=== PATIENT | male | born 1955 | race Caucasian/White ===

== ENCOUNTER 2016-07-29 12:37 | Day surgery (SDC) | payer OTHER ==
[~2016-07-29] VITALS: Ht 180.3 cm; Wt 106.2 kg
[~2016-07-29 12:37] MED LIST: BACTRIM DS 8001 TAB PO; CEPHALEXIN250 M1 PO; CEPHALEXIN500 M1 PO; CIPRO 500MG TA500 MG PO; DOXYCYCLINE 10100 MG PO; DOXYCYCLINE100 MG PO; FLOMAX 0.40.4 MG/CAP PO; NORCO 325 MG-51 TAB PO; PRINIVIL10 MG PO; VOLTAREN 75 DR75 MG PO
[2016-07-29 13:35] VITALS: BP 149/92; PULSE 100; TEMP 97.9
[2016-07-29] MEDS ORDERED: MIRALAX PA17 GM/Dose PO (13:47)
[2016-07-29] MEDS ORDERED: COLACE 100100 MG/CAP PO (13:50)
[2016-07-29 16:56] VITALS: TEMP 98.5
[2016-07-29 17:10] VITALS: BP 139/84; PULSE 73
[2016-07-29 17:25] VITALS: BP 117/72; PULSE 82
[2016-07-29 17:42] VITALS: BP 142/85; PULSE 84
[2016-07-29 17:55] VITALS: BP 135/81; PULSE 73
== END 2016-07-29 18:30 | disposition home or self-care (01) ==
LOC: SDCO 12:37 → SURG 17:10 → SDCO 18:30
DX: N13.2 Hydronephrosis with renal and ureteral calculous obstruction (principal); K21.9 Gastro-esophageal reflux disease without esophagitis; G62.9 Polyneuropathy, unspecified; Z79.899 Other long term (current) drug therapy
CPT/HCPCS: OP; C1769; C2617; J0690; J1100; J2405; J2704; J3010; J7120; Q9967

== ENCOUNTER → 2017-02-26 | Outpatient (CLI) | payer OTHER ==
[~2017-02-26] MED LIST changes: +COLACE 100100 MG/CAP PO; +MIRALAX PA17 GM/Dose PO
== END ==
LOC: COL.RAD 13:48
DX: N20.1 Calculus of ureter (principal); N40.0 Benign prostatic hyperplasia without lower urinary tract symptoms; M47.817 Spondylosis without myelopathy or radiculopathy, lumbosacral region
CPT/HCPCS: Q9967

== ENCOUNTER 2017-09-10 09:54 | Emergency (ER) | payer OTHER ==
[~2017-09-10] VITALS: Ht 180.3 cm; Wt 107.7 kg
[2017-09-10 10:07] VITALS: PULSE 99; TEMP 98.8
[2017-09-10 10:52] LABS: BASO # 0.1 (0.0-0.2); BASO % 0.6 % (0.0-2.0); EOS % 0.1 % (0-4.0); GRAN # 10.2 (1.4-6.5); HEMATOCRIT 47.2 % (42.0-52.0); HEMOGLOBIN 16.1 g/dl (13.5-18.0); LYMPH # 1.3 (1.2-3.4); LYMPH % 10.4 % (20.0-51.0); MEAN CELL VOLUME 85 fl (80.0-100.0); MEAN CORPUSCULAR HEMOGLOBIN 29 pg (27.0-31.0); MEAN CORPUSCULAR HGB CONC 34 g/dl (33.0-37.0); MEAN PLATELET VOLUME 10.6 fl (7.4-10.4); MONO # 0.4 (0.1-0.6); MONO % 3.3 % (1.7-9.3); PLATELET COUNT 334 K/mm3 (130-400); RED BLOOD COUNT 5.54 M/mm3 (4.20-5.60); REDCELL DISTRIBUTION WIDTH-CV 12.6 % (11.5-14.5)
[2017-09-10 11:06] LABS: ALANINE AMINOTRANSFERASE 50 U/L (21-72); ALBUMIN 4.8 gm/dL (3.5-5.0); ALKALINE PHOSPHATASE 105 U/L (50-136); ANION GAP 12 mmol/L (7-16); AST,SGOT 34 U/L (15-37); BILIRUBIN,TOTAL 0.7 mg/dL (0.0-1.0); BLOOD UREA NITROGEN 13 mg/dL (9-20); C-REACTIVE PROTEIN 0.9 mg/dL (0.0-0.9); CALCIUM 9.4 mg/dL (8.4-10.2); CARBON DIOXIDE 21 mmol/L (22-30); CHLORIDE 107 mmol/L (98-107); CREATININE, serum 0.86 mg/dL (0.66-1.25); GLUCOSE 129 mg/dL (74-106); POTASSIUM 4.3 mmol/L (3.4-5.0); SODIUM 139 mmol/L (137-145); TOTAL PROTEIN 8.1 gm/dL (6.4-8.2)
[2017-09-10 11:15] LABS: ERYTHROCYTE SEDIMENTATION RATE 1 mm/hr (0-30)
[2017-09-10 11:22] LABS: TROPONIN-I < 0.012 ng/mL (0.000-0.034)
[2017-09-10] MEDS ORDERED: LACRI-LUBE1 OIN OS (14:47)
[2017-09-10] MEDS ORDERED: VALTREX1 GM PO (14:47)
[2017-09-10] MEDS ORDERED: PREDNISONE20 MG PO (14:47)
[2017-09-10 14:59] VITALS: BP 139/97
== END 2017-09-10 15:08 | disposition home or self-care (01) ==
LOC: COL.ER 09:54
PROVIDERS: Emergency Medicine
DX: G51.0 Bell's palsy (principal)
CPT/HCPCS: J7512

== ENCOUNTER 2021-02-06 19:28 | Emergency (ER) | payer MEDICARE, OTHER ==
[~2021-02-06] VITALS: Ht 180.3 cm; Wt 113.6 kg
[~2021-02-06 19:28] MED LIST changes: +LACRI-LUBE1 OIN OS; +PREDNISONE20 MG PO; +VALTREX1 GM PO
[2021-02-06 19:36] VITALS: TEMP 98.5
[2021-02-06 20:39] LABS: BASO # 0.1 (0.0-0.2); BASO % 0.6 % (0.0-2.0); EOS # 0.3 (0.0-0.7); EOS % 1.6 % (0-4.0); GRAN # 11.8 (1.4-6.5); HEMATOCRIT 41.8 % (42.0-52.0); HEMOGLOBIN 13.8 g/dl (13.5-18.0); LYMPH # 2.4 (1.2-3.4); LYMPH % 15.3 % (20.0-51.0); MEAN CELL VOLUME 87 fl (80.0-100.0); MEAN CORPUSCULAR HEMOGLOBIN 29 pg (27.0-31.0); MEAN CORPUSCULAR HGB CONC 33 g/dl (33.0-37.0); MONO # 1.1 (0.1-0.6); MONO % 6.9 % (1.7-9.3); PLATELET COUNT 380 K/mm3 (130-400); RED BLOOD COUNT 4.81 M/mm3 (4.20-5.60); REDCELL DISTRIBUTION WIDTH-CV 13.2 % (11.5-14.5)
[2021-02-06 20:44] LABS: ALBUMIN 3.9 gm/dL (3.5-5.0); BILIRUBIN,TOTAL 0.3 mg/dL (0.0-1.0); CALCIUM 9.1 mg/dL (8.4-10.2); CREATININE, serum 0.94 (0.66-1.25); POTASSIUM 4.6 mmol/L (3.4-5.0); TOTAL PROTEIN 6.9 gm/dL (6.4-8.2)
[2021-02-06] MEDS ORDERED: LASIX 20MG TABL20 MG PO (22:10)
[2021-02-06 22:28] VITALS: BP 135/90; PULSE 74
== END 2021-02-06 22:28 | disposition home or self-care (01) ==
LOC: COL.ER 19:28
PROVIDERS: Emergency Medicine Emergency Medical Services
DX: G51.0 Bell's palsy (principal); R04.0 Epistaxis; I10 Essential (primary) hypertension; N20.0 Calculus of kidney; N39.0 Urinary tract infection, site not specified; D72.829 Elevated white blood cell count, unspecified
CPT/HCPCS: J1885; J1940